=== PATIENT | male | born 1965 | race Caucasian/White ===

== ENCOUNTER 2016-07-23 15:06 | Emergency (ER) | payer OTHER ==
[~2016-07-23] VITALS: Ht 180.3 cm; Wt 100.0 kg
[~2016-07-23 15:06] MED LIST: OXYC5TAB PO; SENN-65 PO; WARF2TAB PO; WARF3TAB PO
[2016-07-23 15:10] VITALS: TEMP 37.2; Ht 180.3 cm; Wt 100.0 kg
[2016-07-23] MEDS ORDERED: KETOROLAC TROMETHAMINE 30 MG/ML VIAL IV STA (16:08)
[2016-07-23] MEDS ORDERED: HYDR-3983 PO (16:21)
[2016-07-23] MEDS ORDERED: WARF5TAB90 PO (16:25)
[2016-07-23] MEDS ORDERED: GABA-113 PO (16:25)
[2016-07-23] MEDS ORDERED: NORT10CA2 PO (16:25)
[2016-07-23] MEDS ORDERED: LOVA40TA4 PO (16:25)
[2016-07-23] MEDS ORDERED: PRLSR20 PO (16:25)
[2016-07-23 16:45] LABS: BASO % 0.3 %; BASO ABS # 0.02 K/uL (0-0.2); COMPLETE YES; HEMATOCRIT 43.8 % (42-52); IG% 0.3 %; LYMPH % 18.8 %; LYMPH ABS # 1.38 K/uL (1.2-3.4); MEAN CELL VOLUME 88.5 fL (80-100); MEAN CORPUSCULAR HEMOGLOBIN 30.9 pg (25-34); MEAN CORPUSCULAR HGB CONC 34.9 g/dl (32-36); MEAN PLATELET VOLUME 9.9 fL (7.4-10.4); MONO % 10.1 %; NEUT % 68.5 %; PLATELET COUNT 208 K/uL (130-400); RED BLOOD COUNT 4.95 M/uL (4.7-6.1); WHITE BLOOD COUNT 7.33 K/uL (4.8-10.8)
[2016-07-23 16:55] LABS: INR 2.3 (0.9-1.1); PARTIAL THROMBOPLASTIN RATIO 1.4; PROTHROMBIN TIME (PATIENT) 25.1 SECONDS (9.0-12.0)
--- NOTE | 2016-07-23 16:59 | DIAGNOSTIC IMAGING REPORT ---
CHEST ONE VIEW PORTABLE HISTORY: Evaluate Fever/Sepsis COMPARISON: Chest CT 06/19/2013. Chest x-ray 06/17/2013. FINDINGS: Left upper lobe calcified granuloma remains unchanged. There are low lung volumes. Interstitial thickening at the lung bases may be due to vascular crowding. No focal lung consolidations to suggest pneumonia. No evidence for pulmonary edema. No pleural effusions. No pneumothorax. The heart remains top normal in size. IMPRESSION: Interstitial thickening at the lung bases, right greater than left. This may be due to vascular crowding from the low lung volumes. Otherwise, no acute process within the chest. Electronically signed by: Lam Quintero M.D. 07/23/2016 4:58 PM Dictated Date/Time: 07/23/2016 4:41 PM
[2016-07-23 17:35] VITALS: O2SAT 95
[2016-07-23 17:37] LABS: ALKALINE PHOSPHATASE 79 U/L (45-117); ALT/SGPT 34 U/L (12-78); AST/SGOT 25 U/L (15-37); BLOOD UREA NITROGEN 15 mg/dl (7-18); BUN/CREATININE RATIO 14.8 (10-20); CALCIUM 9.1 mg/dl (8.5-10.1); CARBON DIOXIDE 24 mmol/L (21-32); CHLORIDE 104 mmol/L (98-107); CKMB/CK RATIO 1.3 (0-3.0); GLUCOSE 100 mg/dl (70-99); POTASSIUM 4.1 mmol/L (3.5-5.1); SODIUM 137 mmol/L (136-145)
--- NOTE | 2016-07-23 17:54 | EMERGENCY ROOM VISIT NOTE ---
History Report prepared by Jerad: Heather Amin Under the Supervision of: Dr. Dion Stanton D.O. First contact with patient: 16:05 Chief Complaint: CHEST PAIN Stated Complaint: CHEST PAIN Nursing Triage Summary: Pt c/o right breast pain that radiates into right shoulder blade pain x2 weeks seen at [place] last week and cardiac workup was negative Pt reports he was dry walling today and felt a "pop, like something exploded" in right chest Pt denies SOB, nausea, sweating History of Present Illness The patient is a 51 year old male who presents to the Emergency Room with complaints of persistent, worsening right sided chest pain that began two weeks ago. He currently rates his discomfort as a 10/10. The patient states that two weeks ago he felt a popping pain in his right chest after he stood up from cutting dry wall. He states that since then his pain has worsened. The patient states that he notices the pain radiating into his back and states that it is worsened with coughing and putting pressure on his right arm. He states that he was evaluated in [facility] and had a negative cardiac work up. The patient denies any shortness of breath. He states that he recently had a kidney infection two weeks ago. The patient notes a history of blood clots, stating that he is on Coumadin. Source of History: patient Onset: two weeks ago Position: chest (right) Symptom Intensity: Quality: other (pop, radiating) Timing: worsening, other (persistent) Modifying Factors (Worsening): other (pressure on right arm, coughing) Associated Symptoms: No SOB Review of Systems See HPI for pertinent positives & negatives. A total of 10 systems reviewed and were otherwise negative. Past Medical & Surgical Surgical Problems: (1) Hx of appendectomy Family History Diabetes mellitus Heart disease Social History Smoking Status: Current Every Day Smoker Alcohol Use: none Marital Status: Housing Status: lives with significant other Occupation Status: employed Current/Historical Medications Scheduled Gabapentin (Neurontin), 300 MG PO BID Lovastatin (Mevacor), 40 MG PO QPM Nortriptyline (Pamelor), 10 MG PO HS Omeprazole (Prilosec), 20 MG PO BID Warfarin Sodium (Coumadin), 5 MG PO QPM Scheduled PRN Hydrocodone/Acetaminophen 7.5MG/325MG ([place] 7.5MG/325MG), 1 TAB PO Q6 PRN for Pain Allergies Coded Allergies: Morphine (Verified Allergy, Severe, ITCHY/HIVES, 07/23/16) Physical Exam Vital Signs Date Time Temp Pulse Resp B/P Pulse Ox O2 Delivery O2 Flow Rate FiO2 07/23/16 17:45 67 18 162/85 94 Room Air 07/23/16 17:35 95 07/23/16 16:36 71 16 168/80 93 Room Air 07/23/16 15:10 37.2 81 22 153/85 94 Room Air Physical Exam CONSTITUTIONAL/VITAL SIGNS: Reviewed / noted above. GENERAL: Non-toxic in appearance. INTEGUMENTARY: Warm, dry, and [place]. HEAD: Normocephalic. EYES: without scleral icterus or trauma. ENT/OROPHARYNX: clear and moist. LYMPHADENOPATHY/NECK: Is supple without lymphadenopathy or meningismus. CHEST WALL: Tenderness to palpation of right chest wall. RESPIRATORY: Lungs clear and equal. CARDIOVASCULAR: Regular rate and rhythm. GI/ABDOMEN: Soft and nontender. No organomegaly or pulsatile mass. No rebound or guarding. Normal bowel sounds. EXTREMITIES: Warm and well perfused. BACK: No CVA tenderness. NEUROLOGICAL: Intact without focal deficits. PSYCHIATRIC: normal affect. MUSCULOSKELETAL: Normally developed with good muscle tone. Medical Decision & Procedures ER Provider Diagnostic Interpretation: X ray results and stated below per my interpretation and radiology interpretation. CHEST ONE VIEW PORTABLE HISTORY: Evaluate Fever/Sepsis COMPARISON: Chest CT 06/19/2013. Chest x-ray 06/17/2013. FINDINGS: Left upper lobe calcified granuloma remains unchanged. There are low lung volumes. Interstitial thickening at the lung bases may be due to vascular crowding. No focal lung consolidations to suggest pneumonia. No evidence for pulmonary edema. No pleural effusions. No pneumothorax. The heart remains top normal in size. IMPRESSION: Interstitial thickening at the lung bases, right greater than left. This may be due to vascular crowding from the low lung volumes. Otherwise, no acute process within the chest. Electronically signed by: Lam Quintero M.D. 07/23/2016 4:58 PM Dictated Date/Time: 07/23/2016 4:41 PM Laboratory Results 07/23/16 16:25 Red Blood Count 4.95, Mean Corpuscular Volume 88.5, Mean Corpuscular Hemoglobin 30.9, Mean Corpuscular Hemoglobin Concent 34.9, Mean Platelet Volume 9.9, Neutrophils (%) (Auto) 68.5, Lymphocytes (%) (Auto) 18.8, Monocytes (%) (Auto) 10.1, Eosinophils (%) (Auto) 2.0, Basophils (%) (Auto) 0.3, Neutrophils # (Auto ) 5.02, Lymphocytes # (Auto) 1.38, Monocytes # (Auto) 0.74, Eosinophils # (Auto ) 0.15, Basophils # (Auto) 0.02 07/23/16 16:25 Test 07/23/16 16:25 White Blood Count 7.33 K/uL (4.8-10.8) Red Blood Count 4.95 M/uL (4.7-6.1) Hemoglobin 15.3 g/dL (14.0-18.0) Hematocrit 43.8 % (42-52) Mean Corpuscular Volume 88.5 fL (80-100) Mean Corpuscular Hemoglobin 30.9 pg (25-34) Mean Corpuscular Hemoglobin Concent 34.9 g/dl (32-36) Platelet Count 208 K/uL (130-400) Mean Platelet Volume 9.9 fL (7.4-10.4) Neutrophils (%) (Auto) 68.5 % Lymphocytes (%) (Auto) 18.8 % Monocytes (%) (Auto) 10.1 % Eosinophils (%) (Auto) 2.0 % Basophils (%) (Auto) 0.3 % Neutrophils # (Auto) 5.02 K/uL (1.4-6.5) Lymphocytes # (Auto) 1.38 K/uL (1.2-3.4) Monocytes # (Auto) 0.74 K/uL (0.11-0.59) Eosinophils # (Auto) 0.15 K/uL (0-0.5) Basophils # (Auto) 0.02 K/uL (0-0.2) RDW Standard Deviation 42.4 fL (36.4-46.3) RDW Coefficient of Variation 13.1 % (11.5-14.5) Immature Granulocyte % (Auto) 0.3 % Immature Granulocyte # (Auto) 0.02 K/uL (0.00-0.02) Prothrombin Time 25.1 SECONDS (9.0-12.0) Prothromb Time International Ratio 2.3 (0.9-1.1) Activated Partial Thromboplast Time 36.7 SECONDS (21.0-31.0) Partial Thromboplastin Ratio 1.4 Anion Gap 9.0 mmol/L (3-11) Est Creatinine Clear Calc Drug Dose 105.3 ml/min Estimated GFR () 100.6 Estimated GFR (Non- 86.8 BUN/Creatinine Ratio 14.8 (10-20) Calcium Level 9.1 mg/dl (8.5-10.1) Total Bilirubin 0.3 mg/dl (0.2-1) Direct Bilirubin 0.1 mg/dl (0-0.2) Aspartate Amino Transf (AST/SGOT) 25 U/L (15-37) Alanine Aminotransferase (ALT/SGPT) 34 U/L (12-78) Alkaline Phosphatase 79 U/L (45-117) Total Creatine Kinase 297 U/L (39-308) Creatine Kinase MB 3.9 ng/ml (0.5-3.6) Creatine Kinase MB Ratio 1.3 (0-3.0) Troponin I < 0.015 ng/ml (0-0.045) Total Protein 7.5 gm/dl (6.4-8.2) Albumin 3.7 gm/dl (3.4-5.0) Lipase 148 U/L (73-393) Laboratory results as stated above per my review. Medications Administered Medications (Trade) Dose Ordered Sig/Kirstie Route Start Time Stop Time Status Last Admin Dose Admin Ketorolac Tromethamine (Toradol Inj) 30 mg NOW STAT IV 07/23/16 16:08 07/23/16 16:09 DC 07/23/16 16:08 30 MG ECG Indication: chest pain Rate (beats per minute): 87 Rhythm: normal sinus Findings: no acute ischemic change, no ectopy ED Course 1606: Previous medical records were reviewed. The patient was evaluated in room A11A. A complete history and physical examination was performed. 1608: Ordered Toradol Inj 30 mg IV. 1755: I reevaluated the patient and he is resting comfortably. I discussed the exam findings with him and I discussed the treatment plan. He verbalized complete understanding and agreement. He is ready to go home. Medical Decision the differential was considered includes acute myocardial infarction, acute coronary syndrome, myocarditis, pericarditis, pericardial effusions /tamponad, esophageal perforation, thoracic aortic dissection, pulmonary embolism, pneumonia, pneumothorax, pancreatitis, shingles, acute cholecystitis, perforated abdominal viscus. This is a 51-year-old male who presents to the ED with a chief complaint of right-sided chest pain. The patient states that he bent over while he was cutting drywall and heard a pop in his right anterior chest wall. He reports the pain radiates from his anterior chest into his back. He reports it as a stabbing pain worse with cough and movement. He states that he is also had this pain for a couple of weeks and has been seen at [facility] for the same. His vital signs are normal. His physical exam revealed some tenderness to the anterior chest wall. EKG shows a normal sinus rhythm. Chest x-ray is negative for acute disease. CBC is normal. INR is 2.3. He is on Coumadin for DVT. Complete metabolic panel was unremarkable and cardiac enzymes are negative. The patient was treated with IV Toradol. He was told results the test. He is felt to be stable for discharge. [place] Drug Monitoring Program Search Results: patient reviewed within database, see additional documentation Drug Monitoring Findings: The patient receives regular prescriptions for hydrocodone twice a month. Impression Primary Impression: Chest wall pain Departure Information Dispostion Home / Self-Care Referrals Slick Winkler M.D. (PCP) Forms HOME CARE DOCUMENTATION FORM, IMPORTANT VISIT INFORMATION Patient Instructions ED Chest Wall Pain Nehemias , My [facility] [employer] ([place]) Additional Instructions Take ibuprofen as needed for pain. Follow-up with your doctor for recheck.
[2016-07-23 18:15] VITALS: BP 156/76; PULSE 82; O2SAT 95
== END 2016-07-23 18:15 | disposition home or self-care (01) ==
LOC: C.EDB 15:07 → C.EDA 18:15
DX: R07.89 Other chest pain (principal); F17.200 Nicotine dependence, unspecified, uncomplicated; Z79.899 Other long term (current) drug therapy; Z79.01 Long term (current) use of anticoagulants; Z86.79 Personal history of other diseases of the circulatory system; Z83.3 Family history of diabetes mellitus; Z82.49 Family history of ischemic heart disease and other diseases of the circulatory system